=== PATIENT | male | born 1960 | race Caucasian/White ===

== ENCOUNTER 2023-03-09 17:33 | Emergency (ER) | payer OTHER ==
[2023-03-09] MEDS ORDERED: morphine CARPU-JECT 4 MG/1 ML DISP.SYRIN IVPUSH ONE ×2 (17:36→18:03)
[2023-03-09] MEDS ORDERED: ONDANSETRON 4 MG/2 ML VIAL IVPUSH ONE (17:36)
[2023-03-09] MEDS ORDERED: DIPHTH,PERTUSS(ACELL),TET 0.5 ML DISP.SYRIN IM ONE (17:37)
[2023-03-09 17:49] VITALS: BMI 28.1
[2023-03-09 18:03] LABS: HEMOGLOBIN 16.1 G/dL (11.7-16.9); MCH 30.7 pg (25.7-33.7); MCHC 33.6 g/dl (32.0-35.9); MEAN CELL VOLUME 91.4 fl (80-96); MEAN PLT VOLUME 8.2 fl (7.5-11.1); PLATELET COUNT 253.3 10^3/uL (134-434); RBC 5.25 10^6/uL (4.00-5.60); RDW 13.4 % (11.9-15.9); WHITE BLOOD COUNT 11.8 10^3/uL (4.0-10.8)
[2023-03-09 18:06] LABS: INR 0.96 (0.83-1.09); PROTHROMBIN TIME (PATIENT) 11.1 SEC (9.7-13.0)
[2023-03-09 18:09] LABS: ACTIVATED PTT 28.3 SECONDS (25.2-36.5)
[2023-03-09] MEDS ORDERED: SODIUM CHLORIDE 0.9% 500 ML INFUS.BAG IV ONE (18:11)
[2023-03-09 18:12] LABS: PLATELET ESTIMATE ADEQUATE
[2023-03-09 18:18] LABS: ALBUMIN 4.4 g/dl (3.4-5.0); BILIRUBIN,TOTAL 0.4 mg/dl (0.2-1); BLOOD UREA NITROGEN 31.3 mg/dl (7-18); CALCIUM 9.8 mg/dl (8.5-10.1); CREATININE 1.2 mg/dl (0.6-1.3); SGOT/AST 23.2 U/L (15-37); TOT PROT 7.1 g/dl (6.4-8.2)
[2023-03-09 18:39] VITALS: RESP 18
[2023-03-09 19:11] VITALS: BP 156/89; PULSE 98
[2023-03-09 19:12] VITALS: TEMP 98
== END 2023-03-09 19:05 | disposition short-term general hospital (02) ==
LOC: FER 17:33
PROC: 3E033GC Introduction of Other Therapeutic Substance into Peripheral Vein, Percutaneous Approach (ICD-10-PCS; principal; 2023-03-09)
PROC: 3E033GC Introduction of Other Therapeutic Substance into Peripheral Vein, Percutaneous Approach (ICD-10-PCS; 2023-03-09)
PROC: 3E033GC Introduction of Other Therapeutic Substance into Peripheral Vein, Percutaneous Approach (ICD-10-PCS; 2023-03-09)
PROC: 3E0234Z Introduction of Serum, Toxoid and Vaccine into Muscle, Percutaneous Approach (ICD-10-PCS; 2023-03-09)
DX: T23.242A Burn of second degree of multiple left fingers (nail), including thumb, initial encounter (principal); T31.0 Burns involving less than 10% of body surface; X11.8XXA Contact with other hot tap-water, initial encounter; Z20.822 Contact with and (suspected) exposure to COVID-19
CPT/HCPCS: 0241U-QW; 36415; 80053; 85025; 85610; 85730; 86850; 86900; 86901; 90715; 99285-25